=== PATIENT | male | born 1955 | race Two or more races ===

== ENCOUNTER 2019-02-22 18:58 | Inpatient (IN) | payer OTHER, SELFPAY ==
[~2019-02-22] VITALS: Ht 152.4 cm; Wt 87.5 kg
[2019-02-22] MEDS ORDERED: BENA5TAB6 PO (19:06)
[2019-02-22] MEDS ORDERED: SODIUM CHLORIDE 0.9% 1,000 ML IV ONE ×2 (19:11→21:56)
[2019-02-22] MEDS ORDERED: LEVETIRACETAM 1000MG/100ML 100 ML IV ONE (19:15)
[2019-02-22 19:30] LABS: BASOPHILS % 0.5 % (0.0-2.0); EOSINOPHILS % 2.4 % (0.0-5.0); HEMATOCRIT. 37.9 % (42.0-52.0); HEMOGLOBIN. 13.3 g/dL (14.0-18.0); LYMPHOCYTES % 31.8 % (20.0-50.0); MEAN CORPUSCULAR HEMOGLOBIN 29.7 pg (28.0-32.0); MEAN CORPUSCULAR VOLUME 84.9 fL (80.0-94.0); MEAN PLATELET VOLUME 7.7 fl (7.4-10.4); MONOCYTES % 7.2 % (2.0-8.0); NEUTROPHILS % 58.1 % (40.0-76.0); PLATELET 204 x1000/uL (130-400); RED BLOOD CELL COUNT 4.46 mill/uL (4.7-6.1); RED CELL DISTRIBUTION WIDTH 13.5 % (11.6-14.6)
[2019-02-22 19:35] LABS: CHLORIDE 90 mEq/L (98-107)
[2019-02-22 19:39] LABS: ETHANOL BLOOD < 10 mg/dL
[2019-02-22 19:43] LABS: CREATINE KINASE 213 IU/L (39-308)
[2019-02-22 19:45] LABS: PHENOBARBITAL < 2.1 ug/mL (15.0-40.0)
[2019-02-22 19:51] LABS: CARBAMAZEPINE < 0.5 ug/mL (4-12); VALPROIC ACID < 3.0 ug/mL (50-100)
[2019-02-22 20:27] LABS: COLOR URINE YELLOW (YELLOW); KETONES URINE NEGATIVE (NEGATIVE); LEUKOCYTE ESTERASE URINE NEGATIVE (NEGATIVE); NITRITE URINE NEGATIVE (NEGATIVE); OCCULT BLOOD URINE TRACE (NEGATIVE); PH URINE 5.5 (4.5-8.0); PROTEIN URINE 1+ (NEGATIVE); SPECIFIC GRAVITY URINE 1.008 (1.005-1.030); UROBILINOGEN URINE 0.2 E.U./dL (0.2-1.0)
[2019-02-22 20:30] LABS: *AMPHETAMINES SCREEN URINE NEGATIVE (NEGATIVE); *BARBITURATES SCREEN URINE NEGATIVE (NEGATIVE); *BENZODIAZEPINES SCREEN URINE PRESUMTIVE POSITIVE (NEGATIVE); *COCAINE SCREEN URINE NEGATIVE (NEGATIVE)
[2019-02-22 20:31] LABS: CANNABINOID URINE SCREEN NEGATIVE (NEGATIVE); CLARITY URINE HAZY (CLEAR); METHADONE URINE SCREEN NEGATIVE (NEGATIVE); OPIATES URINE SCREEN NEGATIVE (NEGATIVE); PHENCYCLIDINE URINE SCREEN NEGATIVE (NEGATIVE)
[2019-02-22] MEDS ORDERED: DEXAMETHASONE 10 MG/ML VIAL IV ONE (22:00)
[2019-02-22] MEDS ORDERED: POTASSIUM CHLORIDE 20MEQ TABLET SR PO ONE (23:15)
[2019-02-23 00:56] VITALS: BP 164/84
[2019-02-23] MEDS ORDERED: CLONIDINE 0.1MG TABLET PO PRN (03:30)
[2019-02-23] MEDS ORDERED: DEXTROSE 50% WATER 50ML SYRINGE IV PRN (03:30)
[2019-02-23] MEDS: BLOOD SUGAR DIAGNOSTIC STRIP TEST SCH ×4 (06:30→20:42)
[2019-02-23] MEDS: INSULIN LISPRO 100 UNITS/ML SUBCUT SCH ×4 (06:33→20:45)
[2019-02-23] MEDS: SODIUM CHLORIDE 0.9% 1,000 ML IV SCH (07:00)
[2019-02-23 08:00] VITALS: BP 136/67
[2019-02-23] MEDS ORDERED: GADOBENATE DIMEGLUMINE 529 MG/ML 10ML IV ONE (08:06)
[2019-02-23] MEDS: LEVETIRACETAM 500MG TABLET PO SCH ×2 (08:46→20:42)
[2019-02-23 09:36] LABS: HEMOGLOBIN. 13.8 g/dL (14.0-18.0); MEAN CORPUSCULAR HEMOGLOBIN 29.8 pg (28.0-32.0); MEAN CORPUSCULAR VOLUME 86.3 fL (80.0-94.0); PLATELET 199 x1000/uL (130-400); RED BLOOD CELL COUNT 4.64 mill/uL (4.7-6.1); RED CELL DISTRIBUTION WIDTH 13.5 % (11.6-14.6)
[2019-02-23 09:48] LABS: CHLORIDE 107 mEq/L (98-107)
[2019-02-23 09:56] LABS: LDL CHOLESTEROL 95 mg/dL (5-100)
[2019-02-23 09:58] LABS: HDL CHOLESTEROL 48 mg/dL (40-59)
[2019-02-23] MEDS: LORAZEPAM 2MG/ML CPJ IV PRN (11:24)
[2019-02-23 12:00] VITALS: BP 151/70
[2019-02-23 14:09] LABS: PLATELET ESTIMATE NORMAL
[2019-02-23 16:00] VITALS: BP 179/89
[2019-02-23 20:00] VITALS: BP 158/70
[2019-02-24] VITALS: BP 141/70
[2019-02-24 04:00] VITALS: BP 149/77
[2019-02-24] MEDS: BLOOD SUGAR DIAGNOSTIC STRIP TEST SCH ×2 (06:23→12:02)
[2019-02-24] MEDS: SODIUM CHLORIDE 0.9% 1,000 ML IV SCH (06:24)
[2019-02-24] MEDS: INSULIN LISPRO 100 UNITS/ML SUBCUT SCH ×2 (06:28→13:27)
[2019-02-24 08:00] VITALS: BP 136/97
[2019-02-24] MEDS: LEVETIRACETAM 500MG TABLET PO SCH (08:07)
[2019-02-24] MEDS: LORAZEPAM 2MG/ML CPJ IV PRN (09:32)
[2019-02-24] MEDS ORDERED: ZIPR80CA9 PO (10:21)
[2019-02-24 12:00] VITALS: BP 131/64
[2019-02-24] MEDS ORDERED: ZIPRASIDONE HCL 40MG CAPSULE PO SCH (14:00)
[2019-02-24 15:55] VITALS: BP 138/80
[2019-02-24 16:00] VITALS: BP 138/80
== END 2019-02-24 17:19 | disposition home or self-care (01) | DRG 100 ==
LOC: ER 18:58 → 5WST 22:17 → EDBEDREQ 22:22 → EDBEDREQTM 22:22 → ENRESERV 23:02 → 5WST 02-23 09:32
PROVIDERS: ADMIT Internal Medicine; ATTEND Internal Medicine
DX: G40.409 Other generalized epilepsy and epileptic syndromes, not intractable, without status epilepticus (principal); G93.6 Cerebral edema; E87.1 Hypo-osmolality and hyponatremia; E11.9 Type 2 diabetes mellitus without complications; D64.9 Anemia, unspecified; E78.5 Hyperlipidemia, unspecified; E87.6 Hypokalemia; I10 Essential (primary) hypertension; Z79.899 Other long term (current) drug therapy; Z88.8 Allergy status to other drugs, medicaments and biological substances
CPT/HCPCS: 36415; 70553; 73080; 80048; 80061; 80156; 80165; 80184; 80185; 80305; 80320; 81003; 82550; 82962; 83735; 84443; 93970; 99291; A9577; J1100; J1815; J1953; J2060; J7030; G0480